=== PATIENT | male | born 1985 | race Caucasian/White ===

== ENCOUNTER 2024-12-18 14:51 | Emergency (ER) | payer BC, OTHER, SELFPAY ==
[2024-12-18 15:28] VITALS: BP 159/101; PULSE 78; RESP 18; TEMP 36.5; O2SAT 97; BMI 50.1
--- NOTE | 2024-12-18 16:25 | ED_ITS ---
<Statement entered by Shayla Longoria DO - 12/19/24 00:15> I was consulted by the ROSHAN, and we discussed the complexity of the problems being addressed. I approved the treatment and management plan for this patient's care in the emergency department, thus performing a substantive portion of the medical decision making. Shayla Longoria DO Discharge Plan Disposition Patient Disposition: Home, Self-Care Condition: Good Referrals Follow up/Referrals: Provider,Referral, MD [Primary Care Provider] - See instructions Activity Restrictions/Add. Instructions Additional Instructions/Restrictions: Please try to stay hydrated. Take your Zofran if you feel nauseated again before trying to take oral intake. If you have any continued new or worsening signs or symptoms follow-up with your PCP or return to the ER as needed. Clinical Impressions Clinical Impression: Nausea vomiting and diarrhea Headache Qualifiers: Headache type: unspecified Headache chronicity pattern: acute headache I ntractability: not intractable Qualified Code(s): R51.9 - Headache, unspecified Print Language Print Language: Persian Discharge ED Provider: Shayla Longoria General Adult HPI General Chief complaint: Nausea/Vomiting/Diarrhea Stated complaint: vomiting mena abd pain given vaccine 4hrs ago Time Seen by Provider: 12/18/24 16:25 Mode of Arrival: Ambulatory Source of Information: Patient Description of Symptoms (Recalled from ER Triage Doc. by RN): Reports getting a tdap vaccine and that approx 10 minutes later he began to have a headache and vomiting. History of Present Illness HPI narrative: Patient reports for evaluation of headache nausea vomiting and diarrhea. 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 Patient reports that approximately 20 to 30 minutes later he began having a left-sided anterior headache. He denies any focal deficits but reports that the headache intensified throughout the day. Patient reports eating lunch and then afterwards starting having crampy abdominal pain and then had an episode of loose stool. He then had vomiting after protracted nausea. He denies any fever chills hemoptysis hematochezia melena and hematemesis. Related Data Allergies Allergy/AdvReac Type Severity Reaction Status Date / Time Penicillins Allergy Anaphylaxis Verified 12/18/24 15:31 [facility] Disclaimer: The information contained in this section may have been updated after the patient was seen, as this information can be updated by other users. Social History Smoking Status: Never smoker alcohol intake: never current occupational status: employed Travel in the last 8 weeks: None ROS Obtained: Yes Systems reviewed as appropriate & no additional complaints except as documented Physical Exam General General appearance: alert and in no apparent distress Respiratory Respiratory exam: Present normal lung sounds bilaterally Cardiovascular Cardiovascular exam: Present regular rate Neurological Exam Neurological exam: Present alert and oriented X3 Medical Decision Making Medical Records Screening: Per USPSTF and CDC recommendations, given the prevalence of disease in our region, it is our hospital?s policy to screen for HIV and viral Hepatitis for all patients aged 18 and over and those with ongoing risk factors. Cassius Inquiry Pt receiving controlled substance: No Vital Signs: 12/18/24 15:28 12/18/24 16:56 12/18/24 17:01 Temperature 97.7 F Temperature Source Oral Pulse Rate 85 87 Pulse Rate [Radial] 78 Respiratory Rate 18 Blood Pressure 147/92 H 147/86 H Blood Pressure [Right Arm] 159/101 H Blood Pressure Mean 99 94 Blood Pressure Mean [Right Arm] 120 Blood Pressure Source Blood Pressure Source [Right Arm] Automatic Cuff Blood Pressure Position Blood Pressure Position [Right Arm] Sitting 02 Sat by Pulse Oximetry 97 95 95 Oxygen Delivery Method Room Air 12/18/24 18:02 Temperature 97.9 F Temperature Source Oral Pulse Rate 83 Pulse Rate [Radial] Respiratory Rate 16 Blood Pressure 147/80 H Blood Pressure [Right Arm] Blood Pressure Mean Blood Pressure Mean [Right Arm] Blood Pressure Source Automatic Cuff Blood Pressure Source [Right Arm] Blood Pressure Position Sitting Blood Pressure Position [Right Arm] 02 Sat by Pulse Oximetry Oxygen Delivery Method Room Air Lab Data Lab results reviewed: Yes I reviewed the patient's lab results. Lab Results 12/18/24 16:55: WBC 10.7, RBC 5.72, Hgb 16.9, Hct 50.0, MCV 87.4, MCH 29.5, MCHC 33.8, RDW 12.1, Plt Count 293, MPV 10.5 H, Neut % (Auto) 80.9 H, Lymph % (Auto) 12.4, [place] % (Auto) 5.2, Eos % (Auto) 0.3, Baso % (Auto) 0.6, Neut # (Auto) 8.7 H, Lymph # (Auto) 1.3, [place] # (Auto) 0.6, Eos # (Auto) 0.0, Baso # (Auto) 0.1, S odium 135 L, Potassium 4.1, Chloride 103, Carbon Dioxide 25, Anion Gap 11.1, BUN 15, Creatinine 0.90, Estimated Creat Clear 119, Estimated GFR 93, Est GFR ( Amer) 113, Glucose 113 H, Calcium 9.8, Total Bilirubin 0.6, AST 40, ALT 43, Alkaline Phosphatase 69, Total Protein 8.3 H, Albumin 5.3 H, Globulin 3.0, Albumin/Globulin Ratio 1.8 12/18/24 17:30: SARS-CoV-2 (PCR) Not detected, Influenza A Untype (PCR) Not detected, Influenza Type B (PCR) Not detected 12/18/24 16:55 12/18/24 16:55 Orders (Tests/Meds): ED MEDICATIONS Discontinued Medications Generic Name Dose Route Start Last Admin Trade Name Freq PRN Reason Stop Dose Admin Acetaminophen 1,000 mg 12/18/24 16:36 12/18/24 17:00 Acetaminophen 1,000mg/100ml Vial IV 12/18/24 16:37 1,000 mg ONCE ONE Administration Lactated Ringer's 1,000 mls @ 999 mls/hr 12/18/24 16:36 12/18/24 17:00 Lactated Ringer's 1000 Ml Bag IV 12/18/24 17:36 999 mls/hr .Q1H1M ONE Administration Ondansetron HCl 4 mg 12/18/24 16:36 12/18/24 17:00 Ondansetron 4mg Odt SL 12/18/24 16:37 4 mg ONCE ONE Administration ORDERS Category Date Time Status CBC w/Auto Diff [Complete Blood Count Auto Diff] Stat Lab 12/18/24 16:55 Completed CMP [Comprehensive Metabolic Panel] Stat Lab 12/18/24 16:55 Completed Rapid PCR Covid and Flu A/B Stat Lab 12/18/24 17:30 Completed Medical Decision Narrative: In summary patient is a 39-year-old male who presents to the emergency department for evaluation of headache nausea vomiting diarrhea. Patient is hemodynamically stable upon arrival, afebrile. Physical exam is remarkable for no focal neurologic deficits no sore throat congestion shortness of breath. Patient has no nuchal rigidity no meningeal signs. Pupils equal round reactive to light and accommodation. Posterior pharynx is normal. Abdomen is soft diffusely mildly tender to palpation without rebound or guarding or rigidity. Bowel sounds hyperactive. Patient has no localized skin reaction. Patient has no swelling of the oral mucosa.. Differential diagnosis includes vaccination reaction versus acute upper or lower gastrointestinal infection etc. Initial workup includes hematologic labs COVID and flu swabs. I considered imaging however patient has no red flags altered level of consciousness evidence of anaphylaxis reaction dyspnea shortness of breath or chest pain thus imaging deferred for now. Initial intervention includes crystalloid bolus Tylenol Zofran for now. Initial workup reviewed by me shows that his hematologic labs are nonactionable and his COVID and flu are negative. Upon repeat evaluation x- ray reports that his headache is gone and he has no nausea and is actually tolerant of oral intake here in the ER. Given this I had a shared decision- making discussion with the patient regarding further workup in the ER given his findings versus outpatient follow-up for continued symptoms and via patient directed decision making and discharge he feels comfortable going home as he already has Zofran and is house with strict return precautions. Thus patient appropriate discharge with close follow-up with his PCP. Critical Care Critical Care Time Critical Care Time: No
[2024-12-18 16:56] VITALS: BP 147/92; PULSE 85; O2SAT 95
[2024-12-18] MEDS: ACETAMINOPHEN 1,000MG/100ML VIAL 1000 MG IV (17:00)
[2024-12-18] MEDS: ONDANSETRON 4MG ODT 4 MG SL (17:00)
[2024-12-18] MEDS: LACTATED RINGERS 1000ML 1,000 ML 999 ML IV (17:00)
[2024-12-18 17:01] VITALS: BP 147/86; PULSE 87; O2SAT 95
[2024-12-18 17:19] LABS: Basophils # 0.1 K/mm3 (0-0.2); Basophils % 0.6 % (0.1-2.0); Eosinophils % 0.3 % (0.1-12.0); Hemoglobin 16.9 g/dL (14.1-18.0); Lymphocytes # 1.3 K/mm3 (0.7-4.5); Lymphocytes % 12.4 % (10-50); Mean Corpuscular HGB Conc 33.8 g/dL (31.8-35.4); Mean Corpuscular Hemoglobin 29.5 pg (27.0-31.2); Mean Corpuscular Volume 87.4 fl (80-94); Mean Platelet Volume 10.5 fl (7.4-10.4); Monocytes # 0.6 K/mm3 (0.1-1.0); Monocytes % 5.2 % (1.7-9.3); Neutrophils # 8.7 K/mm3 (1.8-7.8); Neutrophils % 80.9 % (37.0-80.0); Platelet Count 293 K/mm3 (142-424); Red Blood Count 5.72 M/mm3 (4.60-6.20); Red Cell Distribution Width 12.1 % (11.5-17.5); White Blood Count 10.7 K/mm3 (4.8-10.8)
[2024-12-18 17:33] LABS: Coronavirus 19, PCR Not Detected (NotDetected); Influenza A, PCR Not Detected (NotDetected); Influenza B, PCR Not Detected (NotDetected)
[2024-12-18 17:56] LABS: Alanine Aminotransferase 43 U/L (12-78); Albumin Level 5.3 g/dl (3.5-5.0); Albumin/Globulin Ratio 1.8 (1.1-1.8); Alkaline Phosphatase 69 U/L (38-126); Anion Gap 11.1 mEq/L (5-15); Aspartate Amino Transferase 40 U/L (17-59); Bilirubin,Total 0.6 mg/dl (0.2-1.3); Blood Urea Nitrogen 15 mg/dl (9-20); Calcium 9.8 mg/dl (8.4-10.2); Carbon Dioxide 25 mmol/L (22.0-30.0); Chloride 103 mmol/L (98-107); Creatinine Clearance Estimated 119 mL/min (50-200); Estimated Glomerular Filt Rate 93 ml/min (>60); GFR (African American) 113 ML/MIN (>60); Glucose 113 mg/dl (74-100); Potassium 4.1 mmoL/L (3.5-5.1); Sodium 135 mmol/L (136-145); Total Protein,Serum 8.3 g/dl (6.3-8.2)
[2024-12-18 18:02] VITALS: BP 147/80; PULSE 83; RESP 16; TEMP 36.6; O2SAT 95
== END 2024-12-18 18:03 | disposition home or self-care (01) ==
PROVIDERS: Physician Assistant; Emergency Provider Emergency Medicine
DX: R51.9 Headache, unspecified (principal); R11.2 Nausea with vomiting, unspecified; R19.7 Diarrhea, unspecified; R10.9 Unspecified abdominal pain
CPT/HCPCS: 80053; 85025; 87636; 96361; 96374; 99283; J0131; J7120; Q0162